=== PATIENT | female | born 1995 | race Caucasian/White ===

== ENCOUNTER 2018-05-10 17:36 | Emergency (ER) | payer BC ==
[~2018-05-10] VITALS: Ht 165.1 cm; Wt 52.4 kg
[2018-05-10 19:16] VITALS: BP 116/70
[2018-05-10 19:40] LABS: MICROSCOPIC INDICATED
[2018-05-10 19:42] LABS: CULTURE INDICATED? NO
== END 2018-05-10 20:02 | disposition home or self-care (01) ==
LOC: ED 19:27
DX: R50.9 Fever, unspecified (principal); R63.0 Anorexia; M79.1 Myalgia
CPT/HCPCS: 81001; 87081; 87880; 99284

== ENCOUNTER 2019-11-09 10:24 | Outpatient (CLI) | payer BC ==
[2019-11-09] MEDS ORDERED: NORE-73 PO (10:52)
== END 2019-11-09 23:59 | disposition home or self-care (01) ==
LOC: STAR 10:24
PROVIDERS: ATTEND Otolaryngology
DX: Z02.9 Encounter for administrative examinations, unspecified (principal)

== ENCOUNTER 2019-11-17 07:44 | Day surgery (SDC) | payer BC ==
[~2019-11-17] VITALS: Ht 165.1 cm; Wt 54.0 kg
[~2019-11-17 07:44] MED LIST: BACITRACIN OINT 500U/GM, 15 GM ONE; EPINEPHRINE TOPICAL SOLN 1 MG/ML, 30ML ONE; LIDOCAINE 1%-EPI 1:100K, 20ML ONE; NORE-73 PO
[2019-11-17 08:19] VITALS: BP 118/75
[2019-11-17] MEDS ORDERED: LIDOCAINE-MPF 1%, 2ML INFIL ONE (08:30)
[2019-11-17] MEDS ORDERED: ACETAMINOPHEN 500 MG TABLET PO ONE (08:30)
[2019-11-17 08:37] LABS: HCG UR SG 1.023 (1.003-1.030)
[2019-11-17] MEDS ORDERED: LACTATED RINGERS 1,000 ML IV SCH (09:00)
[2019-11-17] MEDS ORDERED: MIDAZOLAM 1 MG/ML, 2ML ONE (09:36)
[2019-11-17] MEDS ORDERED: FENTANYL PF 250 MCG/5ML ONE (09:37)
[2019-11-17] MEDS ORDERED: ROCURONIUM 10MG/ML,5ML ONE (09:37)
[2019-11-17] MEDS ORDERED: PROPOFOL 10 MG/ML, 20ML ONE (09:37)
[2019-11-17] MEDS ORDERED: SUCCINYLCHOLINE 20 MG/ML, 10ML ONE (09:37)
[2019-11-17] MEDS ORDERED: DEXAMETHASONE 4 MG/ML, 1ML ONE ×3 (09:37)
[2019-11-17] MEDS ORDERED: LEVOFLOXACIN/PMX 500MG/100ML 100 ML IV ONE (10:00)
[2019-11-17] MEDS ORDERED: MIDAZOLAM 1 MG/ML, 2ML IV PRN (10:30)
[2019-11-17] MEDS ORDERED: LABETALOL 5MG/ML, 20ML IV PRN (10:30)
[2019-11-17] MEDS ORDERED: ONDANSETRON ODT 8 MG PO PRN (10:30)
[2019-11-17] MEDS ORDERED: ONDANSETRON 2MG/ML, 2ML IV PRN (10:30)
[2019-11-17] MEDS ORDERED: MEPERIDINE/PF 25MG/ML,1ML IVPush PRN (10:30)
[2019-11-17] MEDS ORDERED: HYDROmorphone 1 MG/ML, 1ML INJ IVPush PRN (10:30)
[2019-11-17] MEDS ORDERED: PROMETHAZINE 25 MG/ML, 1ML IV PRN (10:30)
[2019-11-17] MEDS ORDERED: ALBUTEROL SULFATE 2.5 MG/3 ML NPPB PRN (10:30)
[2019-11-17] MEDS ORDERED: FENTANYL PF 100 MCG/2ML IV PRN (10:30)
[2019-11-17] MEDS ORDERED: PROMETHAZINE 12.5 MG SUPP PR PRN (10:30)
[2019-11-17] MEDS ORDERED: EPHEDRINE 50 MG/ML, 1ML IVPush PRN (10:30)
[2019-11-17] MEDS ORDERED: hydrALAzine 20 MG/ML, 1ML IV PRN (10:30)
[2019-11-17] MEDS ORDERED: DIAZEPAM 5 MG/ML, 2ML IVPush PRN (10:30)
[2019-11-17] MEDS ORDERED: FENTANYL PF 100 MCG/2ML ONE (10:39)
[2019-11-17] MEDS ORDERED: ONDANSETRON 2MG/ML, 2ML ONE (11:49)
[2019-11-17] MEDS ORDERED: HYDROcodone/APAP 5/325 TABLET ONE (15:14)
[2019-11-17] MEDS ORDERED: HYDROcodone/APAP 5/325 TABLET PO PRN (15:30)
== END 2019-11-17 15:20 | disposition home or self-care (01) ==
LOC: OUT 07:44
PROVIDERS: ATTEND Otolaryngology
DX: J01.01 Acute recurrent maxillary sinusitis (principal); J34.2 Deviated nasal septum; J32.0 Chronic maxillary sinusitis; J32.2 Chronic ethmoidal sinusitis; J32.4 Chronic pansinusitis; J33.8 Other polyp of sinus; K21.9 Gastro-esophageal reflux disease without esophagitis; Z88.8 Allergy status to other drugs, medicaments and biological substances
CPT/HCPCS: 30520; 31240; 31253; 31267; 81025; 88304; 88311; J0330; J1100; J2250; J2405; J2704; J3010; J3490; J7120